=== PATIENT | female | born 1980 | race American Indian/Alaskan Native ===

== ENCOUNTER 2018-04-02 12:26 | Emergency (ER) | payer SELFPAY ==
--- NOTE | 2018-04-02 13:07 | Emergency Department Report ---
ED Extremity Problem HPI - General Chief complaint: Extremity Injury, Upper Stated complaint: LEFT ARM PAIN Time Seen by Provider: 04/02/18 12:53 Source: patient Mode of arrival: Ambulatory Limitations: No Limitations - History of Present Illness Initial comments: Patient is a 38-year-old female states for the past several days she's had some pain in the left arm. Patient states that there also is some associated left- sided neck pain as well. Patient states pain is a 10 out of 10 in severity however she is calm and comfortable in the room. Patient has had no nausea vomiting diarrhea, cold congestion at this time. - Related Data Previous Rx's Medication Instructions Recorded Last Taken Type Ciprofloxacin HCl [Cipro] 500 mg PO Q12H #28 tab 10/13/13 Unknown Rx Metoclopramide HCl [Reglan] 10 mg PO Q6H PRN #10 tablet 10/13/13 Unknown Rx methOCARBAMOL [Robaxin TAB] 500 mg PO Q6H PRN #15 tablet 04/02/18 Unknown Rx predniSONE [Deltasone] 20 mg PO QDAY #5 tab 04/02/18 Unknown Rx traMADol [Ultram] 50 mg PO Q6HR PRN #12 tablet 04/02/18 Unknown Rx Allergies Allergy/AdvReac Type Severity Reaction Status Date / Time No Known Allergies Allergy Verified 04/02/18 12:27 ED Review of Systems ROS: Stated complaint: LEFT ARM PAIN Other details as noted in HPI Comment: All other systems reviewed and negative ED Past Medical Hx - Past Medical History Previous Medical History?: No - Surgical History Additional Surgical History: Hysterectomy; tubal ligation - Social History Smoking Status: Never Smoker Substance Use Type: None - Medications Home Medications: Home Medications Medication Instructions Recorded Confirmed Last Taken Type Ciprofloxacin HCl [Cipro] 500 mg PO Q12H #28 tab 10/13/13 Unknown Rx Metoclopramide HCl [Reglan] 10 mg PO Q6H PRN #10 tablet 10/13/13 Unknown Rx methOCARBAMOL [Robaxin TAB] 500 mg PO Q6H PRN #15 tablet 04/02/18 Unknown Rx predniSONE [Deltasone] 20 mg PO QDAY #5 tab 04/02/18 Unknown Rx traMADol [Ultram] 50 mg PO Q6HR PRN #12 tablet 04/02/18 Unknown Rx ED Physical Exam - General Limitations: No Limitations General appearance: alert, in no apparent distress - Head Head exam: Present: atraumatic, normocephalic - Eye Eye exam: Present: normal appearance - ENT ENT exam: Present: mucous membranes moist - Neck Neck exam: Present: normal inspection - Respiratory Respiratory exam: Present: normal lung sounds bilaterally. Absent: respiratory distress, wheezes, rales - Cardiovascular Cardiovascular Exam: Present: regular rate, normal rhythm. Absent: systolic murmur, diastolic murmur, rubs, gallop - GI/Abdominal GI/Abdominal exam: Present: soft, normal bowel sounds. Absent: distended, tenderness, guarding - Extremities Exam Extremities exam: Present: normal inspection, full ROM, normal capillary refill , other (radial pulse in the left upper extremity is within normal limits). Absent: tenderness, pedal edema, joint swelling - Back Exam Back exam: Present: normal inspection - Neurological Exam Neurological exam: Present: alert, oriented X3 - Psychiatric Psychiatric exam: Present: normal affect, normal mood - Skin Skin exam: Present: warm, dry, intact, normal color. Absent: rash ED Course Vital Signs 04/02/18 12:28 Temperature 98.4 F Pulse Rate 74 Respiratory 18 Rate Blood Pressure 133/90 O2 Sat by Pulse 96 Oximetry ED Medical Decision Making - Medical Decision Making Patient most likely with cervical radiculopathy. Started on Naprosyn symptomatically and discharged home follow with orthopedics. Critical care attestation.: If time is entered above; I have spent that time in minutes in the direct care of this critically ill patient, excluding procedure time. ED Disposition Clinical Impression: Cervical radiculopathy Disposition: DC-01 TO HOME OR SELFCARE Is pt being admited?: No Does the pt Need Aspirin: No Condition: Stable Instructions: Cervical Radiculopathy (ED) Referrals: KODY FONTENOT MD [Staff Physician] - 3-5 Days
[2018-04-02 13:34] VITALS: BP 136/72
== END 2018-04-02 13:32 | disposition home or self-care (01) ==
LOC: ED 12:26
DX: M54.12 Radiculopathy, cervical region (principal); M79.602 Pain in left arm; Z90.710 Acquired absence of both cervix and uterus; Z98.51 Tubal ligation status
CPT/HCPCS: 99282